=== PATIENT | male | born 2000 | race African-American/Black ===

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

== ENCOUNTER 2023-08-23 10:47 | Emergency (ER) | payer MEDICAID, OTHER ==
[~2023-08-23] VITALS: Ht 170.2 cm; Wt 70.5 kg
[2023-08-23 11:38] VITALS: BP 126/60; PULSE 63; RESP 16; TEMP 97.5; O2SAT 98
[2023-08-23] MEDS ORDERED: IBUP-1454 PO (11:51)
== END 2023-08-23 12:00 | disposition home or self-care (01) ==
LOC: ER 10:47
DX: S93.602A Unspecified sprain of left foot, initial encounter (principal); F12.10 Cannabis abuse, uncomplicated; X50.1XXA Overexertion from prolonged static or awkward postures, initial encounter; Y93.39 Activity, other involving climbing, rappelling and jumping off; Y92.39 Other specified sports and athletic area as the place of occurrence of the external cause; Y99.8 Other external cause status
CPT/HCPCS: 73630